=== PATIENT | female | born 1945 ===

== ENCOUNTER 2025-06-04 08:00 | Day surgery (SDC) | payer OTHER ==
[2025-05-28 13:32] VITALS: BP 144/83
[~2025-06-04] VITALS: Ht 152.4 cm; Wt 78.5 kg
[2025-06-04] MEDS ORDERED: MACROBID 100 M100 MG PO (12:01)
[2025-06-04] MEDS ORDERED: ACETAMINOPHEN-1 EAC2 PO (12:02)
[2025-06-04] MEDS ORDERED: GENTAMICIN SULFATE 40 MG/ML VIAL IR ONE (14:00)
[2025-06-04] MEDS ORDERED: CEFAZOLIN SODIUM 1,000 MG VIAL IV ONE (14:00)
== END 2025-06-04 15:10 | disposition home or self-care (01) ==
LOC: CIR.AMB 08:00
PROVIDERS: ATTEND Obstetrics & Gynecology Gynecology
DX: N81.3 Complete uterovaginal prolapse (principal)